=== PATIENT | male | born 1985 | race Caucasian/White ===

== ENCOUNTER → 2021-05-02 14:23 | Outpatient (CLI) | payer OTHER, SELFPAY ==
--- NOTE | ~2021-05-02 | XR_ITS ---
EXAMINATION: XR abdomen/kub 1V INDICATION: Gross hematuria TECHNIQUE: Supine views of the abdomen were obtained on 2 radiographs. COMPARISON: CT of the same day FINDINGS: A subtle calcification projects over the left L3 transverse process, likely reflecting the known left proximal ureteral stone. No additional urolithiasis is identified. The bowel gas pattern t he visualized osseous structures are unremarkable IMPRESSION: 1. Subtle calcification projecting over the left L3 transverse process likely reflecting the known pr oximal ureteral stone. Reviewed, dictated and finalized at location B. IMPRESSION: 1. Subtle calcification projecting over the left L3 transverse process likely r eflecting the known proximal ureteral stone.
--- NOTE | ~2021-05-02 | CT_ITS ---
EXAMINATION: CT abdomen pelvis wo/w con DATE: 05/02/2021 15:26 INDICATION: Gross hematuria TECHNIQUE: Computed tomography (CT) of the abdomen and pelvis was performed without intravenous contr ast. CT of the abdomen and pelvis was then performed with a total of 130 mL Omnipaque 350 intravenous contrast using a double-bolus technique for simultaneous opacification of the renal parenchyma and r enal collecting system. The dose-length product (DLP) was 2377.93 mGy-cm. Automated exposure control and iterative reconstruction technique were employed. COMPARISON: None FINDINGS: The lung bases are clear. The heart size is normal. The liver, spleen, pancreas, gallbladde r, and adrenal glands are normal. There is a 4 mm stone proximal left ureter without significant hydr onephrosis. No suspicious renal or urothelial lesion is identified. There is a 4.6 cm cyst of the lef t kidney. No pathologically enlarged abdominal or pelvic lymph nodes are identified. There is no free intraperitoneal gas or evidence of bowel obstruction. The appendix is normal. There is a small fat-c ontaining umbilical hernia. Mild lumbar spondylosis is noted. IMPRESSION: 1. 4 mm stone of the proximal left ureter without hydronephrosis. Reviewed, dictated and finalized at location B.
[2021-05-02 14:55] LABS: Estimated Glomerular Filt Rate > 60
== END ==
PROVIDERS: PCP Family Medicine; Visit Provider Urology
DX: R31.0 Gross hematuria (principal); N20.1 Calculus of ureter
CPT/HCPCS: 74018; 74178; Q9967

== ENCOUNTER 2021-05-24 01:07 | Emergency (ER) | payer OTHER, SELFPAY ==
--- NOTE | ~2021-05-24 | CT_ITS ---
EXAMINATION: CT abdomen pelvis wo con DATE: 05/24/2021 01:46 INDICATION: Left flank pain TECHNIQUE: Computed tomography (CT) of the abdomen and pelvis was performed without intravenous contr ast. The dose-length product (DLP) was 1320.24 mGy-cm. Automated exposure control and iterative recon struction technique were employed. COMPARISON: 05/02/2021 FINDINGS: Minimal dependent atelectasis is present in the lung bases. The heart size is normal. The l iver, spleen, pancreas, gallbladder, and adrenal glands are normal. The previously described 4 mm lef t ureteral stone is now seen in the distal ureter near the ureterovesicular junction. There is mild l eft hydroureteronephrosis. A 4.4 cm cyst is noted in the left kidney. The right kidney is unremarkabl e. No pathologically enlarged abdominal or pelvic lymph nodes are identified. There is no free intrap eritoneal gas or evidence of bowel obstruction. The appendix is normal. A fat-containing umbilical he rnia is noted. There is mild lumbar spondylosis. IMPRESSION: 1. 4 mm stone in the distal left ureter with mild left hydroureteronephrosis. Reviewed, dictated and finalized at location B.
[2021-05-24 01:12] VITALS: BP 146/86; PULSE 79; RESP 20; TEMP 36.6; O2SAT 98
--- NOTE | 2021-05-24 01:32 | ED.GENADULT ---
HPI - General Adult General Chief complaint: Abdominal Pain Stated complaint: I have a kidney stone Time Seen by Provider: 05/24/21 01:17 History of Present Illness HPI narrative: Patient 35-year-old gentleman who presents the emergency department with chief complaint of left flank pain patient reports that he recently was diagnosed with a kidney stone in the left side that was less than 5 mm. The patient is seen Dr. Jones with urology and is being conservatively managed. The patient reports he is taking Tylenol and ibuprofen for pain yesterday started having discomfort and then tonight it became severe. Patient reports the pain is sharp reports is not improved by anything nor is it worsened by anything. Related Data Home Medications Medication Instructions Recorded Confirmed tamsulosin mg PO 05/24/21 Allergies Allergy/AdvReac Type Severity Reaction Status Date / Time No Known Allergies Allergy Unknown Verified 05/24/21 01:19 Review of Systems Review of Systems: Narrative: A 10 system review of systems was completed on the patient and is negative except for what is stated in the HPI. Nursing and ancillary documentation was reviewed. [facility] Social History Social History Gender identity (if verbalized by the patient): Male Exam Narrative: Exam Narrative: GENERAL: Well-appearing, well-nourished, and in no acute distress. HEAD: Normocephalic, atraumatic. EYES: PERRLA and EOMI. ENT: Nares clear, no rhinorrhea or epistaxis. Mucous membranes moist. NECK: Supple. CHEST: Clear to auscultation. No respiratory distress. HEART: Regular rate and rhythm. No murmur heard. Normal peripheral pulses. ABDOMEN: Soft, nontender, nondistended, normal active bowel sounds. EXTREMITIES: Normal range of motion. No edema. SKIN: Warm, dry, no rash. NEURO: No focal deficits. Alert and oriented x3. PSYCH: Normal mood and affect. Course Vital Signs Vital signs: Vital Signs Temperature 36.6 C 05/24/21 01:12 Pulse Rate 79 05/24/21 01:12 Respiratory Rate 20 05/24/21 01:12 Blood Pressure 146/86 H 05/24/21 01:12 Pulse Oximetry 98 05/24/21 01:12 Temperature 36.6 C 05/24/21 01:12 Pulse Rate 79 05/24/21 01:12 Respiratory Rate 20 05/24/21 01:12 Blood Pressure 146/86 H 05/24/21 01:12 Pulse Oximetry 98 05/24/21 01:12 Medical Decision Making Vital Signs Vital Signs: Vital Signs Temperature 36.6 C 05/24/21 01:12 Pulse Rate 79 05/24/21 01:12 Respiratory Rate 20 05/24/21 01:12 Blood Pressure 146/86 H 05/24/21 01:12 Pulse Oximetry 98 05/24/21 01:12 Temperature 36.6 C 05/24/21 01:12 Pulse Rate 79 05/24/21 01:12 Respiratory Rate 20 05/24/21 01:12 Blood Pressure 146/86 H 05/24/21 01:12 Pulse Oximetry 98 05/24/21 01:12 Lab Data Result diagrams: 05/24/21 01:51 05/24/21 01:51 Labs: Lab Results 05/24/21 05/24/21 05/24/21 Range/Units 01:51 01:51 01:51 WBC 11.9 H (4.5-10.0) K/mm3 RBC 4.48 L (4.6-6.20) M/mm3 Hgb 13.4 L (14.0-18.0) g/dL Hct 40.1 L (42.0-52.0) % MCV 89.5 (80-100) fl MCH 29.9 (26-34) pg MCHC 33.4 (32-36) g/dl RDW 12.8 (11.5-14.5) % Plt Count 250 (150-375) k/mm3 MPV 8.9 (7.4-10.4) fl Immature Gran % (Auto) 0.4 (0-0.5) % Neut % (Auto) 79.9 H (45.5-73.1) % Lymph % (Auto) 10.6 L (18.3-44.2) % [place] % (Auto) 8.0 (2.6-8.5) % Eos % (Auto) 0.8 (0-4.4) % Baso % (Auto) 0.3 (0.2-1.2) % Lymph # (Auto) 1.26 (0.9-3.2) K/mm3 [place] # (Auto) 1.0 H (0.1-0.6) K/mm3 Eos # (Auto) 0.1 (0-0.3) K/mm3 Baso # (Auto) 0.0 (0.0-0.1) K/mm3 Abs Immat Gran (auto) 0.05 H (0.00-0.031) K/mm3 Absolute Neuts (auto) 9.5 H (1.3-6.7) K/mm3 Absolute Nucleated RBC 0.0 (0.0-0.012) K/mm3 Nucleated RBC % 0.0 (0.0-0.2) % Sodium 135 L (137-145) mmol/L Potassium 3.9
[2021-05-24] MEDS: ONDANSETRON INJ 4 MG/2 ML VIAL IV PUSH (01:56)
[2021-05-24 01:59] LABS: Basophils Percent Auto 0.3 % (0.2-1.2); Eosinophils Absolute Auto 0.1 K/mm3 (0-0.3); Eosinophils Percent Auto 0.8 % (0-4.4); Hematocrit 40.1 % (42.0-52.0); Hemoglobin 13.4 g/dL (14.0-18.0); Immature Granulocyte Absolute 0.05 K/mm3 (0.00-0.031); Immature Granulocyte Percent A 0.4 % (0-0.5); Lymphocytes Absolute Auto 1.26 K/mm3 (0.9-3.2); Lymphocytes Percent Auto 10.6 % (18.3-44.2); Mean Corpuscular HGB Conc 33.4 g/dl (32-36); Mean Corpuscular Hemoglobin 29.9 pg (26-34); Mean Corpuscular Volume 89.5 fl (80-100); Mean Platelet Volume 8.9 fl (7.4-10.4); Neutrophils Absolute Auto 9.5 K/mm3 (1.3-6.7); Neutrophils Percent Auto 79.9 % (45.5-73.1); Platelet Count Result 250 k/mm3 (150-375); Red Blood Count 4.48 M/mm3 (4.6-6.20); Red Cell Distribution Width 12.8 % (11.5-14.5); White Blood Count 11.9 K/mm3 (4.5-10.0)
[2021-05-24] MEDS: MORPHINE SULFATE (*CRX) 4 MG/ML INJ IV PUSH (02:02)
[2021-05-24] MEDS: SODIUM CHLORIDE 0.9% IV 1,000 ML 999 ML IV CONT (02:02)
[2021-05-24 02:14] LABS: Alanine Aminotransferase 26 U/L (4-50); Albumin Level 4.2 g/dL (3.5-5.1); Alkaline Phosphatase 79 U/L (38-126); Anion Gap 9 mmol/L (8-16); Aspartate Amino Transferase 22 U/L (17-59); Bilirubin,Total 0.5 mg/dL (0.2-1.3); Blood Urea Nitrogen 20 mg/dL (9-20); Calcium 9.3 mg/dL (8.4-10.2); Carbon Dioxide 24 mmol/L (22-30); Chloride 102 mmol/L (98-107); Estimated CRCL calculation 91 ml/min; Estimated Glomerular Filt Rate 54; Glucose 118 mg/dL (65-110); Lipase 119 U/L (23-300); Potassium 3.9 mmol/L (3.4-5.0); Sodium 135 mmol/L (137-145)
[2021-05-24 02:15] LABS: Add Urine Microscopic? YES; Appearance Urine Clear (Clear); Bilirubin Urine Negative (Negative); Blood Urine 1+ (Negative); Color Urine Yellow (Yellow); Glucose Urine UA Negative (Negative); Ketones Urine Negative (Negative); Leukocyte Esterase Ur Negative LEU/UL (Negative); Mucus Urine Rare /lpf; Nitrate Urine Negative (Negative); Protein Urine Negative (Negative); RBC Urine 0-2 /hpf (0-2); Urobilinogen Urine Negative mg/dL (<2.0); WBC Urine 0-3 /hpf
[2021-05-24] MEDS: HYDROmorphone HCL INJ (*CRX) 1 MG/ML SYR IV PUSH ×2 (02:51→03:29)
[2021-05-24] MEDS: oxyCODONE/ACETAMINOPHEN (*CRX) 5-325 MG TABLET 1 TABLET PO (04:28)
[2021-05-24 04:43] VITALS: BP 127/78; PULSE 80; RESP 16; O2SAT 97
== END 2021-05-24 04:43 | disposition home or self-care (01) ==
PROVIDERS: Emergency Provider Emergency Medicine; PCP Family Medicine
DX: N20.1 Calculus of ureter (principal)
CPT/HCPCS: 36415; 74176; 80053; 81001; 83690; 85025; 96361; 96374; 96375; 96376; 99284; A9270; J1170; J2270; J2405; J7030

== ENCOUNTER 2021-06-01 16:20 | Outpatient (CLI) | payer OTHER, SELFPAY | END 2021-06-01 16:21 | disposition home or self-care (01) | LOC: ANHLAB 16:22 | PROVIDERS: PCP Family Medicine; Visit Provider Urology | DX: N20.0 Calculus of kidney (principal); Z01.818 Encounter for other preprocedural examination | CPT/HCPCS: 87086 ==

== ENCOUNTER → 2021-06-05 15:20 | Outpatient (CLI) | payer OTHER, SELFPAY ==
--- NOTE | ~2021-06-05 | XR_ITS ---
EXAMINATION: XR abdomen/kub 1V DATE: 06/05/2021 16:01 INDICATION: Gross hematuria. TECHNIQUE: A supine view of the abdomen on 2 radiographs was obtained. COMPARISON: CT abdomen and pelvis 05/24/2021 FINDINGS: There are no dilated loops of bowel. There is no visible urolithiasis. IMPRESSION: 1. No visible urolithiasis. Reviewed, dictated and finalized at location A. IMPRESSION: 1. No visible urolithiasis.
== END ==
PROVIDERS: Visit Provider Urology
DX: R31.0 Gross hematuria (principal)
CPT/HCPCS: 74018

== ENCOUNTER 2022-10-20 15:24 | Emergency (ER) | payer OTHER, SELFPAY ==
[2022-10-20 15:28] VITALS: BP 140/88; PULSE 84; RESP 16; TEMP 36.6; O2SAT 97
--- NOTE | 2022-10-20 16:32 | ED.GENADULT ---
HPI - General Adult General Chief complaint: Ear Stated complaint: ear pain Source: patient Mode of arrival: ambulatory Limitations: no limitations History of Present Illness HPI narrative: Patient presents for evaluation of right-sided ear pain. He indicates that he has experienced a sensation that he has fluid in his ears over the last few days. Today he noted worsening pain in the right ear. States he has a history of sinusitis and gets fluid in his ears and regular basis. He does admit to smoking about 1 ppd. Denies sinus congestion, drainage or sore throat. Surgical history significant for tonsillectomy. No fever, chills, nausea, vomiting cough, diarrhea. He recently had influenza. He has several family members who have been ill with RSV, influenza and strep. No additional complaints or concerns Related Data Home Medications Medication Instructions Recorded Confirmed venlafaxine 37.5 mg 37.5 mg PO DIRECTED 10/20/22 10/20/22 capsule,extended release 24 hr Allergies Allergy/AdvReac Type Severity Reaction Status Date / Time No Known Allergies Allergy Unknown Verified 10/20/22 15:31 Review of Systems Review of Systems: CONSTITUTIONAL: Denies fever, chills, or sweats. EYES: Denies visual changes, redness, or discharge. ENT: Reports right ear pain. Denies rhinorrhea, congestion, sore throat CARDIOVASCULAR: Denies chest pain, palpitations, or edema. RESPIRATORY: Denies cough or dyspnea. GASTROINTESTINAL: Denies abdominal pain, nausea, vomiting, or diarrhea. GENITOURINARY: Denies dysuria or hematuria. SKIN: Denies rash or itching. MUSCULOSKELETAL: Denies back pain, joint pain, or myalgia. NEUROLOGIC: Denies headache, numbness, dizziness, or weakness. PSYCHIATRIC: Denies anxiety or depression. [facility] Past Medical History Medical History Acute bacterial sinusitis Obesity Surgical History Surgical History History of tonsillectomy Family History Family History Mother Family history non-contributory Social History Social History Smoking status: Current every day smoker Tobacco type: cigarettes Additional smoking assessment comments: 1PPD 12 YRS Alcohol intake: current Drinks per week: 2 Gender identity (if verbalized by the patient): Male Sexual Orientation (if Verbalized by the Patient): Straight or Heterosexual Spiritual care concerns: No Exam Narrative: GENERAL: Well-appearing, well-nourished, and in no acute distress. HEAD: Normocephalic, atraumatic. EYES: PERRLA and EOMI. ENT: Nares clear, no rhinorrhea or epistaxis. Mucous membranes moist. Oropharynx without tonsillar hypertrophy exudate or other lesions. There is middle ear fluid present in the left. Right tympanic membrane erythema with effusion and bulging of TM NECK: Supple. No adenopathy or masses. No carotid bruits or JVD CHEST: Clear to auscultation. No respiratory distress. No wheezes rales or rhonchi HEART: Regular rate and rhythm. No murmur heard. Normal peripheral pulses. ABDOMEN: Soft, nontender, nondistended, normal active bowel sounds. EXTREMITIES: Normal range of motion. No edema. SKIN: Warm, dry, no rash. NEURO: No focal deficits. Alert and oriented x3. PSYCH: Normal mood and affect. Course Course Emergency Course: This is a 37-year-old male who presented for evaluation of right-sided ear pain. He has evidence of otitis media on exam. Will treat with Augmentin. Sudafed and Flonase may help with middle ear fluid. Advised not to smoke. Increase hydration. Follow up with primary provider. Go to the ER for worsening symptoms. Patient in agreement with plan of care. Level of Care: Express Care Visit Vital Signs Vital signs: Vital Signs Temperature 36.6
== END 2022-10-20 16:35 | disposition home or self-care (01) ==
PROVIDERS: Emergency Provider Nurse Practitioner; PCP Family Medicine
DX: H66.91 Otitis media, unspecified, right ear (principal); F17.210 Nicotine dependence, cigarettes, uncomplicated; E66.9 Obesity, unspecified; Z68.41 Body mass index [BMI] 40.0-44.9, adult
CPT/HCPCS: 99213; G0463

== ENCOUNTER 2023-06-04 09:00 | Emergency (ER) | payer OTHER, SELFPAY ==
[2023-06-04] VITALS (7 sets, daily range): BP systolic 112–152; BP diastolic 84–103; PULSE 67–73; RESP 18–28; TEMP 36.6; O2SAT 94–96
--- NOTE | ~2023-06-04 | XR_ITS ---
EXAMINATION: XR chest 2V DATE: 06/04/2023 09:58 INDICATION: Dizziness. Hypertension. TECHNIQUE: Frontal and lateral views of the chest were obtained. COMPARISON: CT abdomen and pelvis 05/24/2021 FINDINGS: A calcified left lung nodule is consistent with old granulomatous disease. No pleural effus ion or pneumothorax. The heart size is normal. There are prominent paracardial fat pads. IMPRESSION: 1. No acute cardiopulmonary disease. Reviewed, dictated and finalized at location A.
--- NOTE | ~2023-06-04 | CT_ITS ---
EXAMINATION: CT brain wo con DATE: 06/04/2023 09:33 INDICATION: Dizziness. Hypertension. TECHNIQUE: Computed tomography (CT) of the head was performed without intravenous contrast. The mA wa s adjusted according to patient size. Iterative reconstruction technique was employed. The dose-lengt h product was 605.33 mGy-cm. COMPARISON: None FINDINGS: There is no intracranial hemorrhage, acute infarction, or abnormal intracranial mass lesion . The ventricles are normal in size. The orbits are normal. There is mild mucosal thickening in the p aranasal sinuses. There is a right mastoid effusion. There is a trace left mastoid effusion. IMPRESSION: 1. Normal brain. Reviewed, dictated and finalized at location A. IMPRESSION: 1. Normal brain.
--- NOTE | 2023-06-04 09:23 | ECG_ITS ---
Measurements Intervals [place] Rate: 68 P: -13 AL: 201 QRS: 6 QRSD: 101 T: 17 QT: 375 QTc: 399 Interpretive Statements SINUS RHYTHM NO PREVIOUS ECG AVAILABLE FOR COMPARISON Electronically Signed On 06-04-2023 13:55:02 CDT by Zora Sanchez M.D.
--- NOTE | 2023-06-04 09:48 | ED.RECABL ---
HPI - Recheck/Abnormal Lab/Rx General Chief Complaint: Recheck/Abnormal Lab/Rx Stated Complaint: sent by PCP for hypertensive crisis Time Seen by Provider: 06/04/23 09:07 Source: patient Mode of arrival: ambulatory Limitations: no limitations History of Present Illness HPI narrative: This is a 37 year old male that presents to the ER for elevated blood pressure. Reports yesterday he was feeling off . It is difficult for him to elaborate on any certain symptoms. Reports he felt like maybe his blood sugar was low. He again was feeling not right today. Reports some lightheadedness and a mild headache. Reports he went to the nurse at work and his blood sugar was okay, but his blood pressure was quite elevated. He tried to get an appointment with his PCP, but was prompted to be seen here first. He does not have known history of hypertension. Denies chest pain, shortness of breath, vision changes, vomiting, or focal numbness or weakness. Related Data Home Medications Medication Instructions Recorded Confirmed venlafaxine 37.5 mg 37.5 mg PO DIRECTED 10/20/22 10/20/22 capsule,extended release 24 hr Allergies Allergy/AdvReac Type Severity Reaction Status Date / Time No Known Allergies Allergy Unknown Verified 06/04/23 09:14 Review of Systems Review of Systems: CONSTITUTIONAL: Denies fever EYES: Denies visual changes CARDIOVASCULAR: Denies chest pain, or edema. RESPIRATORY: Denies dyspnea. GASTROINTESTINAL: Denies vomiting NEUROLOGIC: Reports headache. Denies numbness, or weakness. All systems reviewed & are unremarkable except as noted in HPI and below [facility] Past Medical History Medical History (Updated 06/04/23 @ 10:55 by Gypsy Meraz PA-C) Acute bacterial sinusitis Obesity Surgical History Surgical History History of tonsillectomy Family History Family History Mother Family history non-contributory Social History Social History (Updated 06/04/23 @ 09:56 by Gypsy Meraz PA-C) Smoking status: Current some day smoker Tobacco type: e-cigarettes/vaping Additional smoking assessment comments: 1PPD 12 YRS Alcohol intake: current Drinks per week: 2 Living arrangements: with family Gender identity (if verbalized by the patient): Male Sexual Orientation (if Verbalized by the Patient): Straight or Heterosexual Spiritual care concerns: No Exam Narrative: GENERAL: Well-appearing, well-nourished, and in no acute distress. HEAD: Normocephalic, atraumatic. EYES: PERRLA and EOMI. ENT: Nares clear, no rhinorrhea or epistaxis. Mucous membranes moist. Oropharynx without tonsillar hypertrophy exudate or other lesions. Bilateral TMs pearly arauz non-bulging NECK: Supple. No adenopathy or masses. No JVD CHEST: Clear to auscultation. No respiratory distress. No wheezes rales or rhonchi HEART: Regular rate and rhythm. No murmur heard. Normal peripheral pulses. ABDOMEN: Soft, nontender, nondistended, normal active bowel sounds. EXTREMITIES: Normal range of motion. No edema. Strength equal in bilateral upper and lower extremities (5/5) SKIN: Warm, dry, no rash. NEURO: No focal deficits. Alert and oriented x3. Cranial nerves II through XII grossly intact. Normal [id number] PSYCH: Normal mood and affect Course Course Emergency Course: Patient was updated on work-up and agrees with plan of care Vital Signs Vital signs: Vital Signs Pulse Rate 69 06/04/23 09:09 Respiratory Rate 21 H 06/04/23 09:09 Blood Pressure 152/91 H 06/04/23 09:09 Pulse Oximetry 95 06/04/23 09:09 Oxygen Delivery Room Air 06/04/23 09:09 Temperature 97.8 F 06/04/23 10:32 Pulse Rate 72 06/04/23 10:32 Respiratory Rate 26 H 06/04/23 10:32 Blood Pressure 112/84 06/04/23 10:32 Pulse Oximetry 96 06/04/23 10:32 Oxygen Delivery Room Air 06/04/23 09:09
[2023-06-04 10:21] LABS: Basophils Percent Auto 0.5 % (0.2-1.2); Eosinophils Absolute Auto 0.1 K/mm3 (0-0.3); Eosinophils Percent Auto 1.1 % (0-4.4); Hemoglobin 14.4 g/dL (14.0-18.0); Immature Granulocyte Absolute 0.02 K/mm3 (0.00-0.031); Immature Granulocyte Percent A 0.3 % (0-0.5); Lymphocytes Absolute Auto 1.55 K/mm3 (0.9-3.2); Lymphocytes Percent Auto 23.5 % (18.3-44.2); Mean Corpuscular HGB Conc 33.5 g/dl (32-36); Mean Corpuscular Hemoglobin 30.2 pg (26-34); Mean Corpuscular Volume 90.1 fl (80-100); Mean Platelet Volume 8.6 fl (7.4-10.4); Monocytes Absolute Auto 0.5 K/mm3 (0.1-0.6); Monocytes Percent Auto 7.3 % (2.6-8.5); Neutrophils Absolute Auto 4.4 K/mm3 (1.3-6.7); Neutrophils Percent Auto 67.3 % (45.5-73.1); Platelet Count Result 275 k/mm3 (150-375); Red Blood Count 4.77 M/mm3 (4.6-6.20); Red Cell Distribution Width 13.2 % (11.5-14.5); White Blood Count 6.6 K/mm3 (4.5-10.0)
[2023-06-04 10:31] LABS: Anion Gap 9 mmol/L (8-16); Blood Urea Nitrogen 15 mg/dL (9-20); Calcium 9.3 mg/dL (8.4-10.2); Carbon Dioxide 26 mmol/L (22-30); Chloride 102 mmol/L (98-107); Estimated CRCL calculation 155 ml/min; Estimated Glomerular Filt Rate > 60; Glucose 97 mg/dL (65-110); Potassium 4.3 mmol/L (3.4-5.0); Sodium 137 mmol/L (137-145)
== END 2023-06-04 11:09 | disposition home or self-care (01) ==
PROVIDERS: Emergency Provider Physician Assistant; PCP Family Medicine
DX: I10 Essential (primary) hypertension (principal); R42 Dizziness and giddiness; F17.219 Nicotine dependence, cigarettes, with unspecified nicotine-induced disorders
CPT/HCPCS: 36415; 70450; 71046; 80048; 85025; 93005; 99284

== ENCOUNTER 2025-01-29 14:59 | Emergency (ER) | payer OTHER, SELFPAY ==
--- OUTSIDE RECORDS SUMMARY | 2025-01-29 15:02 | XMS_ITS | Clinical Summary ---
Author Organization [facility] Address [address] [place] [address] Phone Care Team Providers Care Eviscerator Name Role Phone Provider, None Primary Care Provider Unavailabl e Allergies No known active allergies Medications Cetirizine HCl (ZYRTEC PO) Take by mouth. Active Fluticasone Propionate (FLONASE NA) by Nasal route. Active phentermine 30 MG Capsule Take 1 Cap by mouth daily. 30 Cap 1 05/09/2016 Active phentermine 30 MG Capsule Take 1 Cap by mouth daily. 30 Cap 1 05/09/2016 Active phentermine 30 MG Capsule TAKE ONE CAPSULE BY MOUTH DAILY 30 Cap 1 10/15/2016 Active Active Problems Problem Noted Date Diagnosed Date Acute non-recurrent maxillary sinusitis 07/10/20 16 Tobacco abuse 05/09/2016 Physical exam 05/09/2016 Morbid obesity due to excess calories 05/09/2016 Acute maxillary sinusitis 09/19/2015 Immunizations Immunization Administration Dates Next Due Covid-19, Mrna, Lnp-s, PF, 1 00 mcg/0.5 mL Dose (Moderna) 11/14/2020 Family History Medical History Relation Name Comments Cancer Father Diabetes Father No Known Problems Mother Relation Name Status Comments Father Alive Mother Alive Social History Tobacco Use Types Packs/Day Years Used Date Smoking Tobacco: Heavy Smoker Cigarettes Smokeless Tobacco: Never Tobacco Cessation:Ready to Q uit: No; Counseling Given: Yes Alcohol Use Standard Drinks/Week Comments Yes 0 (1 standard drink = 0.6 oz pur e alcohol) Sexually Active Control Partners Comments Yes Sex and Gender Information Value Date Recorded Sex Assigned at Not on file Legal Sex Male 10:55 PM CDT Gender Identity Not on file Sexual Orientation Not on file Last Filed Vital Signs Vital Sign Reading Time Taken Comments Blood Pressure 138/72 07/10/2016 10:12 AM CDT Pulse 74 07/10/2016 10:12 AM CDT Temperature 37.1 C (98.8 F) 07/10/2016 10:12 AM CDT Respiratory Rate 20 07/10/2016 10:12 AM CDT Oxygen Saturation 99% 07/10/2016 10:12 AM CDT Inhaled Oxygen Concentration - - Weight 147.4 kg (325 lb) 07/10/2016 10:12 AM CDT Height 180.3 cm (5' 11 ) 07/10/2016 10:12 AM CDT Body Mass Index 45.33 07/10/2016 10:12 AM CDT Plan of Treatment Health Maintenance Due Date Last Done Comments Hepatitis C Virus (HCV) Screening 1987 TdaP Immunization 1987 Hepatitis B Immunization (1 of 3 - 19+ 3-dose series) 2006 Influenza Immunization (#1) 07/05/202405/2020, 09/08/2018 SARS-COV-2 Immunization (3 - 2023- season) 2024 12/16/2020, 11/14/2020 Respiratory Syncytial Virus (RSV) Immunization (Adult) (1 - 1-dose 75+ series) 2062 Meningococcal Immunization (ACWY) Aged Out No longer eligible b ased on patient's age to complete this topic Pneumococcal Immunization Combined Aged Out No longer eligible b ased on patient's age to complete this topic Rotavirus Immunization Aged Out No lo nger eligible based on patient's age to complete this topic Insurance [employer] Care Teams Eviscerator Relationship Specialty Start Date End Date Provider, None ROSEANNE PCP - General 10/06/21
--- OUTSIDE RECORDS SUMMARY | 2025-01-29 15:02 | XMS_ITS | Referral Summary ---
Author Organization [facility] Medical Office Building B Address [address] [place] [address] Care Team Providers Care Investment Director Name Role Phone Sivakumar Mascorro MD Primary Care Provider [phone] Encounters Date Type Department Care Team Description 12/25/2024 Telephone [facility] [address] [address] Sivakumar Mascorro MD Prior Auth (ZEPBOUND 7.5) 12/04/2024 Telephone [facility] Diabetes and Endocrinology [address] [place] [id number] Loni Wilder MD New referral to enrocrinology 12/03/2024 Telephone [facility] [address] [address] Sivakumar Mascorro MD Test Results 12/03/2024 Orders Only [facility] [address] [address] Eli Tobias, [employer] ELECTRICAL ENGINEERING OFFICER Low testosterone in male (Primary Dx) 11/27/2024 8:35 AM ENVIRONMENTAL SERVICES ASSISTANT Lab [facility] [address] [place] [address] Fatigue, unspecified type 11/19/2024 11:00 AM ENVIRONMENTAL SERVICES ASSISTANT Office Visit [facility] [address] [address] Eli Tobias NP Fatigue, unspecified type (Primary Dx); ROMMEL (obstructive sleep apnea); Class 3 severe obesity due to excess calories with serious comorbidity and body mass index (BMI) of 50.0 to 59.9 in adult (HCC); Hypertension, essential from Last 3 Months Allergies No known active allergies Medications clonazePAM (KlonoPIN) 0.5 mg tablet Take 1 tablet (0.5 mg total) by mouth 2 (two) times a day as needed for anxiety 60 tablet 3 Active venlafaxine XR (EFFEXOR-XR) 75 mg 24 hr capsule TAKE 1 CAPSULE BY MOUTH EVERY DAY 90 capsule 1 5 Active losartan (COZAAR) 100 mg tablet TAKE 1 TABLET DAILY 90 tablet 3 5 Active tirzepatide, weight loss, (Zepbound) 10 mg/0.5 mL pen injector Inject 0.5 mL (10 mg total) under the skin every 7 days 2 mL 5 Active losartan (COZAAR) 100 mg tablet Take 1 tablet (100 mg total) by mouth daily 90 tablet 4 4 12/31/19 25 Discontinued tirzepatide, weight loss, (ZEPBOUND) 7.5 mg/0.5 mL pen injector Inject 0.5 mL (7.5 mg total) under the skin every 7 days 5 01/26/20 25 Discontinued Active Problems Problem Noted Date Diagnosed Date Annual physical exam 04/15/2024 Assessment & Plan (04/15/2024 4:30 PM CDT): Visit preventive in nature. We reviewed medications, chronic conditions, risk factors, lifestyle recommendations. Reviewed immunization recommendations. Follow-up in 1 year for annual wellness. Of course sooner for any concerns. Hypertriglyceridemia 04/15/2024 Assessment & Plan (04/15/2024 4:31 PM CDT): Improving with fish oil. Should continue to improve with weight loss as well. Will continue to monitor. Class 3 severe obesity due t o excess calories with serious comorbidity and body mass index (BMI) of 50.0 to 59.9 in adult 01/22/2024 Assessment & Plan (11/19/2024 12:32 PM ENVIRONMENTAL SERVICES ASSISTANT): Will start zepbound. He already has the prescription on hand. Monitor for side effects. If side effects not tolerable will send decreased dose. Had previously been on equivalent dose of wegovy. Will monitor response. Assessment & Plan (04/15/2024 4:31 PM CDT): Will uptitrate Wegovy. Message through [employer] with update in 1-2 months. Assessment & Plan (01/22/2024 8:39 AM CDT): Will uptitrate Wegovy next month. Can consider additional uptitration thereafter monthly. Continue to work on lifestyle changes. Will continue to monitor. Family history of prostate cancer 01/22/2024 Assessment & Plan (01/22/2024 8:39 AM CDT): Will have PSA and plan accordingly. Dysfunction of both eustachian tubes 01/22/2024 Assessment & Plan (01/22/2024 8:39 AM CDT): Continue oral antihistamine. Try Flonase every other day and see if you can tolerate. If worsening or not resolving let us know. Consider antibiotics p.r.n. for infection. Fatigue 06/11/2023 Assessment & Plan (11/19/2024 12:33 PM ENVIRONMENTAL SERVICES ASSISTANT): Chronic. Unchanged. Will check labs. Reviewed lifestyle recommendations. Will continue to monitor. Assessment & Plan (06/11/2023 8:03 AM CDT): Discussed differential diagnoses and multiple factors influencing fatigue including anemia, endocrinopathies, vitamin deficiencies, hormonal imbalance, inadequate sleep, poor diet, and lack of exercise. Encouraged healthy eating and regular physical activity. Reviewed sleep hygiene. Will continue to monitor. Hypertension, essential 06/11/2023 Assessment & Plan (11/19/2024 12:33 PM ENVIRONMENTAL SERVICES ASSISTANT): Stable on losartan. No changes. Will continue to monitor. Assessment & Plan (04/15/2024 4:31 PM CDT): Well controlled on losartan. No changes. Will continue to monitor. Assessment & Plan (01/22/2024 8:38 AM CDT): Improved increase in losartan. Continue current dose. Will continue to monitor. Assessment & Plan (06/11/2023 8:03 AM CDT): Improved; continue losartan 50 mg daily. Patient checking BP periodically with home cuff, reviewed goal of <130. If Systolic BP consistently <105, instructed to reduce losartan to 25 mg daily. Follow up scheduled in 3 week. Recurrent major depression 07/25/2022 Tobacco dependence due to cigarettes 12/12/2019 Assessment & Plan (01/22/2024 8:38 AM CDT): Has stopped tobacco and is vaping. Recommend continuing to decrease vaping. Will continue to monitor. Assessment & Plan (12/12/2019 1:47 PM ENVIRONMENTAL SERVICES ASSISTANT): Precontemplative. Encouraged complete smoking cessation. Discussed different types of medications & gdtj-rbd-zemszha aides to help with cessation. Foot pain, left 12/12/2019 Assessment & Plan (12/12/2019 1:49 PM ENVIRONMENTAL SERVICES ASSISTANT): Has never been dx'd w/gout but description by Dr Brizuela suspicious for gout. Aware to call if flair & labs can be ordered. Discussed dietary restrictions:Cut down on red meats, ETOH & high-fructose foods (sodas & store-bought cakes/cookies). Increase intake of: low-fat dairy, whole grains & vegetables. Reviewed medication Ses. Can take naproxen 500mg po bid also. Call for labs: CBC, LDH & uric acid level ordered; will call w/results when rec'd. Discussed foods to avoid:high-fructose foods (soda & store bought cakes & cookies), meats, poultry, fish, organ meats, beans, peas, shrimp, asparagus & ETOH. Can eat: low purine foods include: protein intake--eggs & cheeses; increase vegetables & whole grain foods. Reviewed red flags. Encounter for medical examination to establish c are 12/11/2019 Assessment & Plan (12/12/2019 1:45 PM ENVIRONMENTAL SERVICES ASSISTANT): -reviewed screening guidelines: no family history of breast or colon cancer. Denies self-testicular exam monthly. Encouraged monthly self checks. Colonoscopy recommended at 50 years of age. -UTD on immunizations. -discussed diet/exercise: daily recommendations of 20-30 minutes physical activity daily, watch fat/sugar intake. -denies safety/violence. Wears seatbelt. Aware to not text/talk and drive. -does smoke and drinks ETOH socially. -lives at home with supportive family Screening for endocrine disorder 12/11/2019 Assessment & Plan (12/12/2019 1:45 PM ENVIRONMENTAL SERVICES ASSISTANT): A1c & CMP ordered to screen for diabetes. Will contact w/results once rec'd. Encounter for screening for lipoid disorders 05/2020 Assessment & Plan (06/11/2023 8:02 AM CDT): Patient to complete fasting labs prior to his annual physical later this month. Assessment & Plan (12/12/2019 1:46 PM ENVIRONMENTAL SERVICES ASSISTANT): Lipid panel ordered; will call w/results when received. Reviewed diet/exercise recommendations. Need for influenza vaccination 12/11/2019 Assessment & Plan (12/12/2019 1:46 PM ENVIRONMENTAL SERVICES ASSISTANT): Flu vaccine given today. Discussed possible tenderness/redness at injection site. Morbid obesity with body mass index of 50 or hig her 12/11/2019 Assessment & Plan (06/11/2023 8:04 AM CDT): Patient is aware of need for weight loss. Discussed healthy diet and importance of regular physical activity. Assessment & Plan (12/12/2019 1:46 PM ENVIRONMENTAL SERVICES ASSISTANT): The BMI is in the obese range thus increasing your risk for cardiovascular, endocrine, GI, and musculoskeletal problems. Strive to cut back on calories and increase exercise to achieve weight loss. Include at least 4-5 fruits and vegetables in the diet daily and exercise for about 30 min nearly every day. Limit fried and high fat foods and include lean sources of protein as well as low fat dairy or other calcium sources. Consider making short and terminal manager goal to track your progress. Keep a diet/exercise record or on line resource to track calories in and out. Discuss your efforts with me at the next visit. Look up [employer]izer - this is a free calorie tracking jhony. Discussed healthy diet and importance of regular physical activity. Snoring 12/11/2019 Assessment & Plan (12/12/2019 1:47 PM ENVIRONMENTAL SERVICES ASSISTANT): Referral to Dr Becerril for sleep study. Heavy/loud snoring w/periods of apnea witnessed by . Contact info for Dr Becerril given to Mr Brizuela. Will call Dr Becerril's office if no call rec'd by midweek next week. Episode of apnea 12/11/2019 Assessment & Plan (12/12/2019 1:47 PM ENVIRONMENTAL SERVICES ASSISTANT): Referral to Dr Becerril for sleep study. Heavy/loud snoring w/periods of apnea witnessed by . Contact info for Dr Becerril given to Mr Brizuela. Will call Dr Becerril's office if no call rec'd by [facility] next week. Personal history of gout 12/11/2019 Umbilical hernia without obstruction and without gangrene 05/22/2017 Assessment & Plan (05/22/2017 11:42 AM CDT): Will monitor for changes or pain. Wishes to wait for surgical referral ROMMEL (obstructive sleep apnea) 05/03/2017 Assessment & Plan (11/19/2024 12:32 PM ENVIRONMENTAL SERVICES ASSISTANT): 100% compliant with CPAP and will continue. Assessment & Plan (06/11/2023 8:01 AM CDT): Reports nightly cpap use Assessment & Plan (05/03/2017 9:25 AM CDT): Patient and his is already noticed an improvement in his nighttime breathing. Snoring has markedly reduced and at times is eliminated. Recommend that the patient continue to work on weight loss. Patient states he has quit tobacco use a month ago. Resolved Problems Problem Noted Date Diagnosed Date Resolved Date Obesity, morbid, BMI 40.0-49.9 09/08/2018 12/12/2019 Assessment & Plan (09/08/2018 2:59 PM ENVIRONMENTAL SERVICES ASSISTANT): BMI Follow-up includes: nutrition counseling. Tobacco dependence 09/08/2018 0 Assessment & Plan (09/08/2018 3:00 PM ENVIRONMENTAL SERVICES ASSISTANT): Tobacco use is unchanged. Smoking cessation counseling was provided. Tobacco use will be reassessed at the next regular appointment Discussed wellbutrin and chantix as options. Has tried nicotine patches in past.. Wheezing 09/18/2017 12/12/2019 Assessment & Plan (09/18/2017 10:35 AM ENVIRONMENTAL SERVICES ASSISTANT): 1. Claritin D 2. Augmentin 3. Nasal saline rinses as needed for congestion. 4. Follow-up with PCP in 5-7 days - if symptoms worsen or persist 5. Wheezing: He smokes 6 cigarettes/day. He has a proair inhaler at home that he has been using. States it's not outdated. Will also add 20mg prednisone daily x 5 days Chronic tonsillitis 05/03/2017 05/22/20 17 Assessment & Plan (05/03/2017 9:24 AM CDT): Patient is healing as expected from tonsillectomy. Patient has no further dietary restrictions or physical activity restrictions. Morbid obesity 05/09/2016 09/08/2018 Assessment & Plan (05/22/2017 11:41 AM CDT): Obesity is unchanged. Discussed the patient's BMI. The BMI is above average; no BMI management plan is appropriate. General weight loss/lifestyle modification strategies discussed (elicit support from others; identify saboteurs; non-food rewards, etc). Informal exercise measures discussed, e.g. taking stairs instead of elevator. He and his are working on diet changes. Physical exam 05/09/2016 12/12/2019 Assessment & Plan (09/08/2018 3:04 PM ENVIRONMENTAL SERVICES ASSISTANT): Patient and I discussed the folllowing: -Healthy, low fat diet. Avoiding junk food/fast food. -30 minutes of exercise most days of the week. Increase to 45 minutes for weight loss. -Influenza vaccine every year -F/u in 1 year for Annual PE or sooner if needed Assessment & Plan (05/22/2017 11:41 AM CDT): Normal physical. He has been told his cholesterol was a little high in the past. We'll recheck a lipid panel and cmp today, fasting. Immunizations Immunization Administration Dates Next Due Influenza, Quadrivalent, Spl it, Preservative Free, Intramuscular 12/11/2019,09/08/2018 Influenza, Unspecified 11/19/2024(Deferr ed: Patient Refused),01/21/2024(Deferred: Patient Refused),01/01/2023(Deferred: Patient Refused),07/25/2022(Deferred: Patient Refused),07/05/2022(Deferred: Patient Refused),07/05/2021(Deferred: Patient Refused),11/04/2020(Deferred: Patient Refused) Moderna SARS-CoV-2 Monovalen t Vaccination (12+ YRS) 12/16/2020,12/12/2020 Social History Tobacco Use Types Packs/Day Years Used Date Smoking Tobacco: Every Day Vaping Smokeless Tobacco: Never Tobacco Cessation:Ready to Q uit: Not Asked; Counseling Given: Not Answered Comments:Smoking History Packs/day: 10 Cigarettes: Pt started smoking again late Jun early July 2017 Alcohol Use Standard Drinks/Week Comments Yes 4 (1 standard drink = 0.6 oz pur e alcohol) Socially AUDIT-C Answer Date Recorded Q1: How often do you have a drink containing alc ohol? 2-4 times a month 07/02/2023 Q2: How many drinks containi ng alcohol do you have on a typical day when you are drinking? 5 or 6 07/02/2023 Q3: How often do you have si x or more drinks on one occasion? Monthly 07/02/2023 PHQ-2 Answer Date Recorded PHQ-2 Total Score (If total score is 3 or more points, staff should administer the PHQ-9) 0 04/15/2024 Personal Safety Answer Date Recorded Have you ever been in or are you currently in a harmful physical or emotional relationship or is someone making you feel afraid or unsafe? Denies 04/28/2023 Sex and Gender Information Value Date Recorded Sex Assigned at Not on file Legal Sex Male 3:47 AM ENVIRONMENTAL SERVICES ASSISTANT Gender Identity Not on file Sexual Orientation Not on file Last Filed Vital Signs Vital Sign Reading Time Taken Comments Blood Pressure 140/92 11/19/2024 10:33 AM ENVIRONMENTAL SERVICES ASSISTANT Pulse 89 11/19/2024 10:33 AM ENVIRONMENTAL SERVICES ASSISTANT Temperature 36.9 C (98.4 F) 11/19/2024 10:33 AM ENVIRONMENTAL SERVICES ASSISTANT Respiratory Rate 20 11/19/2024 10:3 3 AM ENVIRONMENTAL SERVICES ASSISTANT Oxygen Saturation 96% 11/19/2024 10: 33 AM ENVIRONMENTAL SERVICES ASSISTANT Inhaled Oxygen Concentration - - Weight 173.9 kg (383 lb 6.4 oz) 025 10:33 AM ENVIRONMENTAL SERVICES ASSISTANT Height 177.8 cm (5' 10 ) 11/19/2024 10: 33 AM ENVIRONMENTAL SERVICES ASSISTANT Body Mass Index 55.01 11/19/2024 10:33 AM ENVIRONMENTAL SERVICES ASSISTANT Plan of Treatment Not on file Procedures Procedure Name Priority Date/Time Associated Diagnosis Comments DIFFERENTIAL AUTO Routine 11/27/2024 9:0 0 AM ENVIRONMENTAL SERVICES ASSISTANT Fatigue, unspecified type TOTAL TESTOSTERONE Routine 11/27/2024 9: 00 AM ENVIRONMENTAL SERVICES ASSISTANT Fatigue, unspecified type THYROID FUNCTION CASCADE Routine 11/27/2024 9:00 AM ENVIRONMENTAL SERVICES ASSISTANT Fatigue, unspecified type VITAMIN D 25 HYDROXY Routine 11/27/2024 9:00 AM ENVIRONMENTAL SERVICES ASSISTANT Fatigue, unspecified type CBC WITH AUTO DIFFERENTIAL Routine 11/27/2024 9:00 AM ENVIRONMENTAL SERVICES ASSISTANT Fatigue, unspecified type HEPATITIS C ANTIBODY STAT 04/28/2023 1:50 AM CDT from Last 3 Months or Most Recently Relevant to Health Maintenance Results * Differential, auto (11/27/2024 9:00 AM ENVIRONMENTAL SERVICES ASSISTANT) Neutrophil abs 3.1 1.5 - 6.5 K/cumm Comment:Testing performed by : [facility], [address] [place] [address]., [id number] Imm gran abs 0.0 0.0 - 0.1 K/cumm [facility] (ALTAF) Comment:Testing performed by : [facility], [address] [place] [address]., [id number] Lymphocyte abs 2.1 0.8 - 3.3 K/cumm [facility] ([facility]) Comment:Testing performed by : [facility], [address] [place] [address]., [id number] Monocyte abs 0.5 0.2 - 0.8 K/cumm [facility] ([place]) Comment:Testing performed by : [facility], [address] [place] [address]., [id number] Eosinophil abs 0.1 0.0 - 0.5 K/cumm [facility] ([facility]) Comment:Testing performed by : [address] [id number] Basophil abs 0.0 0.0 - 0.1 K/cumm [facility] (AL[facility]) Comment:Testing performed by : [facility], [address] [place] [address]., [id number] Neutrophil pct 52.9 % [facility] ([facility]) Comment: Interpretive Data Percent cell count reference ranges are not reported, since discordance with absolute values may lead to misinterpretation of CBC data. Current Interpretive Data was last revised on 2018. Testing performed by: [address] [address] Imm gran pct 0.5 % [facility] ([facility]) Comment: Interpretive Data Percent cell count reference ranges are not reported, since discordance with absolute values may lead to misinterpretation of CBC data. Current Interpretive Data was last revised on 2018. Testing performed by: [address] [address] Lymphocyte pct 35.5 % [facility] ([facility]) Comment: Interpretive Data Percent cell count reference ranges are not reported, since discordance with absolute values may lead to misinterpretation of CBC data. Current Interpretive Data was last revised on 2018. Testing performed by: [address] [place] [address] Monocyte pct 8.8 % [facility] (AL[facility]) Comment: Interpretive Data Percent cell count reference ranges are not reported, since discordance with absolute values may lead to misinterpretation of CBC data. Current Interpretive Data was last revised on 2018. Testing performed by: [facility], [address] [place] [address]., [id number] Eosinophil pct 2.0 % [facility] ([facility]) Comment: Interpretive Data Percent cell count reference ranges are not reported, since discordance with absolute values may lead to misinterpretation of CBC data. Current Interpretive Data was last revised on 2018. Testing performed by: [facility], [address] [place] [address]., [id number] Basophil pct 0.3 % [facility] ([facility]) Comment: Interpretive Data Percent cell count reference ranges are not reported, since discordance with absolute values may lead to misinterpretation of CBC data. Current Interpretive Data was last revised on 2018. Testing performed by: [facility], [address] [place] [address]., [id number] Blood 11/27/2024 9:00 AM ENVIRONMENTAL SERVICES ASSISTANT 11/27/2024 12:33 PM ENVIRONMENTAL SERVICES ASSISTANT us Eli Tobias NP LAB BLOOD ORDERABLES Final Result Performing Organization Address City/[facility]/ZIP Co de Phone Number MIKE VALIENTE (ALTAF) 1 [facility] [place] [address] * Thyroid Function [place] (11/27/2024 9:00 AM ENVIRONMENTAL SERVICES ASSISTANT) TSH 2.13 0.30 - 4.20 mcIUnit/mL Comment:Testing performed by : [facility], [address] [place] [address]., [id number] Blood 11/27/2024 9:00 AM ENVIRONMENTAL SERVICES ASSISTANT 11/27/2024 12:33 PM ENVIRONMENTAL SERVICES ASSISTANT Eli Tobias NP LAB BLOOD ORDERABLES Final Result MIKE VALIENTE (ALTAF) [address] Department [place] [address] * (ABNORMAL) CBC with auto differential (11/27/2024 9:00 AM ENVIRONMENTAL SERVICES ASSISTANT) [facility] WBC 5.9 3.8 - 9.9 K/cumm Comment:Testing performed by : [address], [address] Hgb 12.8(L) 13.0 - 17.5 g/dL [facility] (AL[facility]) Comment:Testing performed by : [facility], [address] [place] [address], [id number] Hct 39.8 38.9 - 50.3 % [facility] ([facility]) Comment:Testing performed by : [address], [address] Plt 303 150 - 400 K/cumm [facility] (AL[facility]) Comment:Testing performed by : [address], [address] MPV 9.0(L) 9.1 - 12.3 fL [facility] ([facility]) Comment:Testing performed by : [address], [address] RBC 4.33 4.30 - 5.80 M/cumm [facility] ([facility]) Comment:Testing performed by : [address], [address] MCV 91.9 81.3 - 96.4 fL [facility] ([facility]) Comment:Testing performed by : [address], [address] MCH 29.6 27.1 - 33.3 pg [facility] ([place]) Comment:Testing performed by : [address], [address] MCHC 32.2(L) 32.3 - 35.7 g/dL [facility] ([facility]) Comment:Testing performed by : [address], [address] RDW CV 12.6 11.1 - 14.9 % [facility] ([facility]) Comment:Testing performed by : [address], [address] RDW SD 42.5 35.7 - 48.1 fL MIKE VALIENTE (ALTAF) Comment:Testing performed by : [facility], [address] [place] [address]., [id number] NRBC abs 0.00 0.00 - 0.01 K/cumm MIKE VALIENTE (ALTAF) Comment:Testing performed by : [facility], [address] [place] [address], [id number] Blood 11/27/2024 9:00 AM ENVIRONMENTAL SERVICES ASSISTANT 11/27/2024 12:33 PM ENVIRONMENTAL SERVICES ASSISTANT us Eli Tobias NP LAB BLOOD ORDERABLES Final Result MIKE VALIENTE (ALTAF) 1 [facility] [place] [address] * (ABNORMAL) Vitamin D 25 hydroxy (11/27/2024 9:00 AM ENVIRONMENTAL SERVICES ASSISTANT) Vitamin D 25-OH 27(L) 30 - 80 ng/mL Comment:Testing performed by : [facility], [address] [place] [address], [id number] Blood 11/27/2024 9:00 AM ENVIRONMENTAL SERVICES ASSISTANT 11/27/2024 12:33 PM ENVIRONMENTAL SERVICES ASSISTANT us Eli Tobias [employer] ELECTR[employer] ENGINEERING OFFICER LAB BLOOD ORDERABLES Final Result Performing Organization Address City/[facility]/ZIP Co de Phone Number MIKE VALIENTE (ALTAF) [address] [place] [address] * (ABNORMAL) Total testosterone (11/27/2024 9:00 AM ENVIRONMENTAL SERVICES ASSISTANT) Testosterone 197(L) 249 - 836 ng/dL Comment:Testing performed by : [facility], [address] [place] [address], [id number] Blood 11/27/2024 9:00 AM ENVIRONMENTAL SERVICES ASSISTANT 11/27/2024 12:33 PM ENVIRONMENTAL SERVICES ASSISTANT us Eli Tobias NP LAB BLOOD ORDERABLES Final Result MIKE VALIENTE (ALTAF) 1 [facility] Department [place] [address] * Hepatitis C antibody (04/28/2023 1:50 AM CDT) Hep C Ab Nonreactive Nonreactive MIKE VALIENTE ([place]) Comment: Interpretive Data Nonreactive: Antibodies to HCV not detected. Does NOT exclude the possibility of recent exposure to HCV. Equivocal: Equivocal for HCV antibodies. Supplemental molecular testing will be automatically performed to determine infection status in accordance with current CDC screening recommendations. Reactive: Positive for HCV antibodies. This may represent current or past HCV infection. Supplemental molecular testing will be automatically performed to determine current infection status in accordance with current CDC screening recommendations. Interpretive data was last revised on 2020. Testing performed by: [facility], [address] [place] [address]., [id number] Blood 04/28/2023 1:50 AM CDT 04/28/2023 4:49 PM CDT Delmis Hannah MD LAB MICROBIOLOGY - GENERAL ORDER LAURA Final Result MIKE VALIENTE ([place]) 1 [facility] Department [place] [address] from Last 3 Months or Most Recently Relevant to Health Maintenance Insurance [facility] [employer] WORKERS COMPENSATION GENERIC Care Teams Investment Director Relationship Specialty Start Date End Date Sivakumar Mascorro [place] [address] PCP - General Family Medicine 12/11/19
--- OUTSIDE RECORDS SUMMARY | 2025-01-29 15:02 | XMS_ITS | Clinical Summary ---
Author Organization [facility] Building [address] Address [address] [place] [address] Care Team Providers Care Custom Framing Specialist Name Role Phone Sivakumar Mascorro MD Primary Care Provider [phone] Allergies No known active allergies Medications clonazePAM [...] 01/22/2024 Assessment & Plan (11/19/2024 12:32 PM BLADDER BLOWER): Will start zepbound. He already has the prescription on hand. Monitor for side effects. If side effects not tolerable will send decreased dose. Had previously been on equivalent dose of wegovy. Will monitor response. Assessment & Plan (04/15/2024 4:31 PM CDT): Will uptitrate Wegovy. Message through Ve[employer] with update in 1-2 months. Assessment & [...] 06/11/2023 Assessment & Plan (11/19/2024 12:33 PM BLADDER BLOWER): Chronic. Unchanged. Will check labs. Reviewed lifestyle [...] 06/11/2023 Assessment & Plan (11/19/2024 12:33 PM BLADDER BLOWER): Stable on losartan. No changes. Will continue [...] monitor. Assessment & Plan (12/12/2019 1:47 PM BLADDER BLOWER): Precontemplative. Encouraged complete smoking cessation. Discussed different types of medications & ogku-fsd-ogavcou aides to help with cessation. Foot pain, left 12/12/2019 Assessment & Plan (12/12/2019 1:49 PM BLADDER BLOWER): Has never been dx'd w/gout but description [...] 12/11/2019 Assessment & Plan (12/12/2019 1:45 PM BLADDER BLOWER): -reviewed screening guidelines: no family history of [...] 12/11/2019 Assessment & Plan (12/12/2019 1:45 PM BLADDER BLOWER): A1c & CMP ordered to screen for diabetes. Will contact w/results once rec'd. Encounter for screening for lipoid disorders 05/2020 Assessment & Plan (06/11/2023 8:02 AM CDT): Patient to complete fasting labs prior to his annual physical later this month. Assessment & Plan (12/12/2019 1:46 PM BLADDER BLOWER): Lipid panel ordered; will call w/results when received. Reviewed diet/exercise recommendations. Need for influenza vaccination 12/11/2019 Assessment & Plan (12/12/2019 1:46 PM BLADDER BLOWER): Flu vaccine given today. Discussed possible tenderness/redness at injection site. Morbid obesity with body mass index of 50 or hig her 12/11/2019 Assessment & Plan (06/11/2023 8:04 AM CDT): Patient is aware of need for weight loss. Discussed healthy diet and importance of regular physical activity. Assessment & Plan (12/12/2019 1:46 PM BLADDER BLOWER): The BMI is in the obese range [...] other calcium sources. Consider making short and fdc goal to track your progress. Keep a diet/exercise record or on line resource to track calories in and out. Discuss your efforts with me at the next visit. Look up [employer] - this is a free calorie tracking jhony. Discussed healthy diet and importance of regular physical activity. Snoring 12/11/2019 Assessment & Plan (12/12/2019 1:47 PM BLADDER BLOWER): Referral to Dr Becerril for sleep study. Heavy/loud snoring w/periods of apnea witnessed by . Contact info for Dr Becerril given to Mr Brizuela. Will call Dr Becerril's office if no call rec'd by midweek next week. Episode of apnea 12/11/2019 Assessment & Plan (12/12/2019 1:47 PM BLADDER BLOWER): Referral to Dr Becerril for sleep study. Heavy/loud snoring w/periods of apnea witnessed by . Contact info for Dr Becerril given to Mr GrijalvaBrizuela. Will call Dr Becerril's office if no call rec'd by midweek next week. Personal history of gout 12/11/2019 Umbilical hernia without obstruction and without gangrene 05/22/2017 Assessment & Plan (05/22/2017 11:42 AM CDT): Will monitor for changes or pain. Wishes to wait for surgical referral ROMMEL (obstructive sleep apnea) 05/03/2017 Assessment & Plan (11/19/2024 12:32 PM BLADDER BLOWER): 100% compliant with CPAP and will continue. [...] 12/12/2019 Assessment & Plan (09/08/2018 2:59 PM BLADDER BLOWER): BMI Follow-up includes: nutrition counseling. Tobacco dependence 09/08/2018 0 Assessment & Plan (09/08/2018 3:00 PM BLADDER BLOWER): Tobacco use is unchanged. Smoking cessation counseling was provided. Tobacco use will be reassessed at the next regular appointment Discussed wellbutrin and chantix as options. Has tried nicotine patches in past.. Wheezing 09/18/2017 12/12/2019 Assessment & Plan (09/18/2017 10:35 AM BLADDER BLOWER): 1. Claritin D 2. Augmentin 3. Nasal [...] 12/12/2019 Assessment & Plan (09/08/2018 3:04 PM BLADDER BLOWER): Patient and I discussed the folllowing: -Healthy, [...] a lipid panel and cmp today, fasting. Encounters Date Type Department Care Team Description 12/25/2024 Telephone [facility] [address] [phone] Sivakumar Mascorro MD Prior Auth (ZEPBOUND 7.5) 12/04/[address] [facility]ocr[facility] [address] [place] [id number] Loni Wilder MD New referral to enrocrinology 12/03/2024 Telephone [facility] [address] [phone] Sivakumar Mascorro MD Test Results 12/03/2024 Orders Only [facility] [address] [phone] Eli Tobias, BLIND STITCH MACHINE OPERATOR Low testosterone in male (Primary Dx) 11/27/2024 8:35 AM BLADDER BLOWER Lab [facility] [address] [place] [id number] Fatigue, unspecified type 11/19/2024 11:00 AM BLADDER BLOWER Office Visit [facility] [address] [place] [phone] Eli Tobias NP Fatigue, unspecified type (Primary Dx); ROMMEL (obstructive sleep apnea); Class 3 severe obesity due to excess calories with serious comorbidity and body mass index (BMI) of 50.0 to 59.9 in adult (HCC); Hypertension, essential from Last 3 Months Immunizations Immunization Administration Dates Next Due Influenza, Quadrivalent, Spl it, Preservative Free, Intramuscular 12/11/2019,09/08/2018 Influenza, Unspecified 11/19/2024(Deferr ed: Patient Refused),01/21/2024(Deferred: Patient Refused),01/01/2023(Deferred: Patient Refused),07/25/2022(Deferred: Patient Refused),07/05/2022(Deferred: Patient Refused),07/05/2021(Deferred: Patient Refused),11/04/2020(Deferred: Patient Refused) Moderna SARS-CoV-2 Monovalen t Vaccination (12+ YRS) 12/16/2020,12/12/2020 Surgical History Surgery Date Site/Laterality Comments TONSILLECTOMY 04/12/2017 Bilateral TONSILLECTOMY 11/04/2016 - 11/03/2017 VASECTOMY 08/04/2020 - 09/03/2020 Medical History Medical History Date Comments Sinusitis Pt states its is seasonal sinus issues Allergic Seasonal Allergi es Family History Medical History Relation Name Comments Bladder Cancer Father Aydin Cancer Father Aydin Diabetes Father Aydin Drug abuse Father Aydin Cancer Father's Brother Mehran Cancer Paternal Grandfather JW Testicular cancer Paternal Grandfather JW Relation Name Status Comments Brother Alive Father Aydin Alive Father's Brother Mehran Alive Mother Alive Other Other Paternal Grandfather JW Sister Alive Social History Tobacco Use Types Packs/Day [...] on file Legal Sex Male 3:47 AM BLADDER BLOWER Gender Identity Not on file Sexual Orientation Not on file Obstetrics History Last Filed Vital Signs Vital Sign Reading Time Taken Comments Blood Pressure 140/92 11/19/2024 10:33 AM BLADDER BLOWER Pulse 89 11/19/2024 10:33 AM BLADDER BLOWER Temperature 36.9 C (98.4 F) 11/19/2024 10:33 AM BLADDER BLOWER Respiratory Rate 20 11/19/2024 10:3 3 AM BLADDER BLOWER Oxygen Saturation 96% 11/19/2024 10: 33 AM BLADDER BLOWER Inhaled Oxygen Concentration - - Weight 173.9 kg (383 lb 6.4 oz) 025 10:33 AM BLADDER BLOWER Height 177.8 cm (5' 10 ) 11/19/2024 10: 33 AM BLADDER BLOWER Body Mass Index 55.01 11/19/2024 10:33 AM BLADDER BLOWER Plan of Treatment Health Maintenance Due Date Last Done Comments DTaP/Tdap/Td Vaccine (1 - Tdap) 1998 Varicella Vaccines (1 of 2 - 13+ 2-dose series) 2000 Hepatitis B Screening 2005 Pneumococcal vaccine <65 (1 of 2 - PCV) 2006 Covid-19 Vaccine ( season) 2024 12/16/2020, 12/12/2020, 11/14/2020 Depression Screening 04/15/2025 04/15/2024, 07/02/2023, 06/11/2023, Additional history exists Regular Well Visit/Exam 18-64 04/15/2025 04/15/2024, 07/25/2022, 07/24/2021, Additional history exists Influenza Vaccine (#1) 2025 12/11/2019, 2017 Postponed from 07/05/2024 (Patient declined, but will receive in the future) Hepatitis C Screening Completed 04/28/2023 HPV Vaccines Aged Out No longer eligi ble based on patient's age to complete this topic Procedures Procedure Name Priority Date/Time Associated Diagnosis Comments DIFFERENTIAL AUTO Routine 11/27/2024 9:0 0 AM BLADDER BLOWER Fatigue, unspecified type TOTAL TESTOSTERONE Routine 11/27/2024 9: 00 AM BLADDER BLOWER Fatigue, unspecified type THYROID FUNCTION CASCADE Routine 11/27/2024 9:00 AM BLADDER BLOWER Fatigue, unspecified type VITAMIN D 25 HYDROXY Routine 11/27/2024 9:00 AM BLADDER BLOWER Fatigue, unspecified type CBC WITH AUTO DIFFERENTIAL Routine 11/27/2024 9:00 AM BLADDER BLOWER Fatigue, unspecified type HEPATITIS C ANTIBODY STAT 04/28/2023 1:50 AM CDT from Last 3 Months or Most Recently Relevant to Health Maintenance Results * Differential, auto (11/27/2024 9:00 AM BLADDER BLOWER) Neutrophil abs 3.1 1.5 - 6.5 K/cumm Comment:Testing performed by : [facility], [address] [place] [address]., [id number] Imm gran abs 0.0 0.0 - 0.1 K/cumm MIKE VALIENTE (ALTAF) Comment:Testing performed by : [facility], [address] [place] [address]., [id number] Lymphocyte abs 2.1 0.8 - 3.3 K/cumm [facility] ([place]) Comment:Testing performed by : [facility], [address] [place] [address]., [id number] Monocyte abs 0.5 0.2 - 0.8 K/cumm [facility] ([place]) Comment:Testing performed by : [facility], [address] [place] [address]., [id number] Eosinophil abs 0.1 0.0 - 0.5 K/cumm [facility] ([place]) Comment:Testing performed by : [facility], [address] [place] [address]., [id number] Basophil abs 0.0 0.0 - 0.1 K/cumm [facility] ([place]) Comment:Testing performed by : [address] [id number] Neutrophil pct 52.9 % [facility] ([place]) Comment: Interpretive Data Percent cell count reference ranges are not reported, since discordance with absolute values may lead to misinterpretation of CBC data. Current Interpretive Data was last revised on 2018. Testing performed by: [facility], [address] [place] [address]., [id number] Imm gran pct 0.5 % [facility] ([place]) Comment: Interpretive Data Percent cell count reference ranges are not reported, since discordance with absolute values may lead to misinterpretation of CBC data. Current Interpretive Data was last revised on 2018. Testing performed by: [facility], [address] [place] [address]., [id number] Lymphocyte pct 35.5 % [facility] ([place]) Comment: Interpretive Data Percent cell count reference ranges are not reported, since discordance with absolute values may lead to misinterpretation of CBC data. Current Interpretive Data was last revised on 2018. Testing performed by: [address] [id number] Monocyte pct 8.8 % [facility] ([place]) Comment: Interpretive Data Percent cell count reference ranges are not reported, since discordance with absolute values may lead to misinterpretation of CBC data. Current Interpretive Data was last revised on 2018. Testing performed by: [address] [address] Eosinophil pct 2.0 % [facility] ([facility]) Comment: Interpretive Data Percent cell count reference ranges are not reported, since discordance with absolute values may lead to misinterpretation of CBC data. Current Interpretive Data was last revised on 2018. Testing performed by: [facility], [address] [place] [address]., [id number] Basophil pct 0.3 % MIKE VALIENTE (ALTAF) Comment: Interpretive Data Percent cell count reference ranges are not reported, since discordance with absolute values may lead to misinterpretation of CBC data. Current Interpretive Data was last revised on 2018. Testing performed by: [facility], [address] [place] [address]., [id number] Blood 11/27/2024 9:00 AM BLADDER BLOWER 11/27/2024 12:33 PM BLADDER BLOWER Eli Tobias NP LAB BLOOD ORDERABLES Final Result Performing Organization Address [facility]/ZIP Co de Phone Number MIKE VALIENTE (ALTAF) 1 [facility] [place] [address] * Thyroid Function [place] (11/27/2024 9:00 AM BLADDER BLOWER) TSH 2.13 0.30 - 4.20 mcIUnit/mL Comment:Testing performed by : [facility], [address] [place] [address]., [id number] Blood 11/27/2024 9:00 AM BLADDER BLOWER 11/27/2024 12:33 PM BLADDER BLOWER Eli Tobias NP LAB BLOOD ORDERABLES Final Result Performing Organization Address [facility]/ZIP Co de Phone Number MIKE VALIENTE (ALTAF) 1 [facility] [place] [address] * (ABNORMAL) CBC with auto differential (11/27/2024 9:00 AM BLADDER BLOWER) WBC 5.9 3.8 - 9.9 K/cumm Comment:Testing performed by : [facility], [address] [place] [address]., [id number] Hgb 12.8(L) 13.0 - 17.5 g/dL [facility] ([place]) Comment:Testing performed by : [facility], [address] [place] [address], [id number] Hct 39.8 38.9 - 50.3 % [facility] ([place]) Comment:Testing performed by : [facility], [address] [place] [address], [id number] Plt 303 150 - 400 K/cumm [facility] ([place]) Comment:Testing performed by : [address], [address] MPV 9.0(L) 9.1 - 12.3 fL [facility] ([place]) Comment:Testing performed by : [address], [address] RBC 4.33 4.30 - 5.80 M/cumm [facility] ([place]) Comment:Testing performed by : [address], [address] MCV 91.9 81.3 - 96.4 fL [facility] ([place]) Comment:Testing performed by : [address], [address] MCH 29.6 27.1 - 33.3 pg [facility] ([place]) Comment:Testing performed by : [address], [address] MCHC 32.2(L) 32.3 - 35.7 g/dL [facility] ([place]) Comment:Testing performed by : [address], [address] RDW CV 12.6 11.1 - 14.9 % [facility] ([place]) Comment:Testing performed by : [address], [address] RDW SD 42.5 35.7 - 48.1 fL [facility] ([place]) Comment:Testing performed by : [address], [address] NRBC abs 0.00 0.00 - 0.01 K/cumm [facility] ([place]) Comment:Testing performed by : [address], [id number] Blood 11/27/2024 9:00 AM BLADDER BLOWER 11/27/2024 12:33 PM BLADDER BLOWER Eli Tobias NP LAB BLOOD ORDERABLES Final Result Performing Organization Address [facility]/ZIP Co de Phone Number MIKE SCHROEDER) [address] [place] [address] * (ABNORMAL) Vitamin D 25 hydroxy (11/27/2024 9:00 AM BLADDER BLOWER) [facility] Vitamin D 25-OH 27(L) 30 - 80 ng/mL Comment:Testing performed by : [facility], [address] [place] [address], [id number] Blood 11/27/2024 9:00 AM BLADDER BLOWER 11/27/2024 12:33 PM BLADDER BLOWER Eli Tobias NP LAB BLOOD ORDERABLES Final Result Performing Organization Address [facility] de Phone Number MIKE VALIENTE ([place]) [address] [place] [address] * (ABNORMAL) Total testosterone (11/27/2024 9:00 AM BLADDER BLOWER) [facility] Testosterone 197(L) 249 - 836 ng/dL Comment:Testing performed by : [facility], [address] [place] [address]., [id number] Blood 11/27/2024 9:00 AM BLADDER BLOWER 11/27/2024 12:33 PM BLADDER BLOWER Eli Tobias NP LAB BLOOD ORDERABLES Final Result Performing Organization Address [facility] Co de Phone Number MIKE VALIENTE (ALTAF) [address] [place] [address] * Hepatitis C antibody (04/28/2023 1:50 AM CDT) [facility] Hep C Ab Nonreactive Nonreactive MIKE VALIENTE ([place]) Comment: Interpretive Data Nonreactive: Antibodies to HCV [...] last revised on 2020. Testing performed by: [facility], [address] [place] [address]., [id number] Blood 04/28/2023 1:50 AM CDT 04/28/2023 4:49 PM CDT us Delmis Hannah MD LAB MICROBIOLOGY - GENERAL ORDER LAURA Final Result [facility] ([place]) 1 [facility] [place] [address] from Last 3 Months or Most Recently Relevant to Health Maintenance [facility] [employer] Care Teams Custom Framing Specialist Relationship Specialty Start Date End Date Sivakumar Mascorro MD [address] [place] [address] PCP - General Family Medicine 12/11/19
[2025-01-29 15:07] VITALS: BP 128/79; PULSE 88; RESP 24; TEMP 37.2; O2SAT 96
--- NOTE | 2025-01-29 15:28 | ED_ITS ---
HPI - URI/Sore Throat General Chief Complaint: Upper Respiratory Infection Stated Complaint: sinus/ears/cough Source: patient and RN notes reviewed Mode of arrival: ambulatory Limitations: no limitations History of Present Illness HPI Narrative: 39-year-old male presented for complaint of headache, cough, sore throat, body aches, sinus pressure/congestion under eyes, fever/chills. onset yesterday. states the cough has caused vomiting. Denies sob, wheezing, n/v/d. Taking DayQuil and Mansi-Napa. elicited complaint: cough Related Data Home Medications ?Medication ?Instructions ?Recorded ?Confirmed ?Last Taken ?Type venlafaxine 37.5 mg 37.5 mg PO DIRECTED 10/20/22 01/29/25 Unknown History capsule,extended release 24 hr losartan 100 mg tablet mg 01/29/25 Unknown History tirzepatide (weight loss) 10 mg subcut 01/29/25 Unknown History mg/0.5 mL subcutaneous pen injector (Zepbound) Allergies Allergy/AdvReac Type Severity Reaction Status Date / Time No Known Allergies Allergy Unknown Verified 01/29/25 15:30 Review of Systems Review of Systems: CONSTITUTIONAL: Endorses malaise, chills, sweats, fever EYES: Denies visual changes, redness, or discharge ENT: Reports rhinorrhea, congestion, sinus pain, otalgia, sore throat CARDIOVASCULAR: Denies chest pain, palpitations, edema RESPIRATORY: Reports cough, post nasal drainage. Denies dyspnea GASTROINTESTINAL: Denies abdominal pain, nausea, vomiting, diarrhea SKIN: Denies rash MUSCULOSKELETAL: Endorses myalgia PMFSH Past Medical History Medical History Obesity Acute bacterial sinusitis Surgical History Surgical History History of tonsillectomy Family History Family History Mother Family history non-contributory Social History Social History Smoking status: Current some day smoker Tobacco type: e-cigarettes/vaping Additional smoking assessment comments: 1PPD 12 YRS Alcohol intake: current Drinks per week: 2 Living arrangements: with family Gender identity (if verbalized by the patient): Male Sexual Orientation (if Verbalized by the Patient): Straight or Heterosexual Spiritual care concerns: No Exam 2 Narrative: GENERAL: Mildly Ill-appearing, nontoxic no acute distress. EYES: PERRLA, conjunctivae clear ENT: Mucous membranes moist. TM pearly arauz with dull light reflex bilaterally; no tragal tenderness. Oropharynx erythematous. tonsils absent. no drooling, no hoarseness, no trismus, uvula midline. No tripod positioning, muffled voice, soft palate or pharyngeal wall bulging NECK: Supple. No lymphadenopathy CHEST: Clear to auscultation, breath sounds equal. No wheezing, rhonchi, rales, or stridor. No respiratory distress, speaks in full sentences. HEART: Regular rate and rhythm. SKIN: Warm, dry, no rash. NEURO: Alert and oriented x3. PSYCH: Normal mood and affect Course Course Emergency Course: Patient is aware of diagnosis, understands and agrees to treatment plan. Anticipatory guidance given. Patient agrees to follow-up as directed and is aware of reasons to seek care at the emergency department. Portions of this record may have been created with voice recognition software Level of Care: Express Care Visit Vital Signs Vital signs: Vital Signs Temperature 99 F 01/29/25 15:07 Pulse Rate 88 01/29/25 15:07 Respiratory Rate 24 H 01/29/25 15:07 Blood Pressure 128/79 01/29/25 15:07 Pulse Oximetry 96 01/29/25 15:07 Oxygen Delivery Room Air 01/29/25 15:07 Temperature 99 F 01/29/25 15:07 Pulse Rate 88 01/29/25 15:07 Respiratory Rate 24 H 01/29/25 15:07 Blood Pressure 128/79 01/29/25 15:07 Pulse Oximetry 96 01/29/25 15:07 Oxygen Delivery Room Air 01/29/25 15:07 reviewed MDM - URI/Sore Throat MDM Narrative Medical decision making narrative: positive flu. Discussed physical exam findings. Advised supportive measures and signs/symptoms to go to the ER. Pt is appropriate for outpt treatment and f/u. Differential Diagnosis Differential diagnosis: Likely upper respiratory infection, sinusitis and viral infection Discharge Plan Discharge Clinical Impression: Influenza Patient Disposition: Home, Self-Care Condition: Stable Instructions: Influenza (ED) Additional Instructions: Influenza positive You should avoid crowds until you are fever free for 24 hours without the use of fever reducing medications, or the symptoms are improved Rest. Drink plenty of fluids. Tylenol 1000mg every 8 hours as needed for pain/fever Flonase spray and Zyrtec (or Claritin/Emily) for sinus pressure/congestion over the counter Cough syrup may cause drowsiness; avoid driving or take it at night time. Follow up with your primary care provider as needed in 1 week Go to the ER for worsening symptoms or concerns Patient Language: Greenlandic Prescriptions: New benzonatate 200 mg capsule 200 mg PO TID PRN (Reason: cough) Qty: 20 0RF No Action venlafaxine 37.5 mg capsule,extended release 24hr 37.5 mg PO DIRECTED losartan 100 mg tablet Zepbound 10 mg/0.5 mL pen injector SUBCUT Follow-up/Referrals: Harms,Sivakumar Mendez M.D. [Primary Care Provider] - Stand Alone Forms: Work/School Release IP Time of Disposition: 15:53
[2025-01-29 15:41] LABS: EDCOVIDSCREEN Negative (Negative); EDINFLUASCREEN Negative (Negative); EDINFLUBSCREEN Positive (Negative)
== END 2025-01-29 15:56 | disposition home or self-care (01) ==
PROVIDERS: Emergency Provider Nurse Practitioner Family; PCP Family Medicine
DX: J10.1 Influenza due to other identified influenza virus with other respiratory manifestations (principal); Z20.822 Contact with and (suspected) exposure to COVID-19; F17.290 Nicotine dependence, other tobacco product, uncomplicated; E66.9 Obesity, unspecified; Z68.43 Body mass index [BMI] 50.0-59.9, adult
CPT/HCPCS: 87426; 87804; 99213; G0463